=== PATIENT | male | born 1945 | race American Indian/Alaskan Native ===

== ENCOUNTER 2017-04-04 07:52 | Outpatient (CLI) | payer MEDICARE ==
--- NOTE | 2017-04-04 11:21 | Cat Scan Report ---
CT abdomen and pelvis without contrast: Prostate cancer. Transverse images are obtained from the low chest to the ischium with coronal and sagittal 2-D reformatted images. The visualized lung bases are clear with no nodule. The abdominal organs are unremarkable. There is a 1 cm hypodensity in the superior right kidney having attenuation consistent with fluid. The retroperitoneal structures were not otherwise remarkable. The partially opacified bowel and mesentery is unremarkable. No inflammatory changes. No obvious periaortic or mesentery adenopathy. Sections carried through the pelvis demonstrate an enlarged prostate gland indenting the bladder base. No adenopathy appreciated although this evaluation is somewhat limited in the absence of IV contrast. There no blastic or lytic bone lesions identified. Impression: Enlarged prostate gland. No metastases identified. Right renal hypodensity with limited evaluation consistent with cyst.
--- NOTE | 2017-04-05 08:18 | Nuclear Medicine Report ---
NUCLEAR MEDICINE WHOLE BODY BONE SCAN HISTORY: Prostate cancer. TECHNIQUE: Anterior and posterior whole body images and oblique images of the chest and abdomen were obtained following 25 mCi of technetium 99m MDP. FINDINGS: Correlation is made with the CT abdomen pelvis without contrast performed the same day. No previous bone scan at this facility. There is increased radiotracer uptake throughout large portions of the right iliac bone, right acetabulum and right ischium. There is cortical and trabecular thickening and sclerosis throughout the right hemipelvis on CT. Although this could be related to metastatic prostate cancer, Paget's disease should also be considered. There are 2 focal intense areas of uptake in left lateral ribs 6 and 7. Nondisplaced fractures are identified in these areas on the noncontrast CT performed same day. No additional areas of abnormal uptake is appreciated. IMPRESSION: Abnormal uptake is identified throughout most of the right hemipelvis. It is unclear if this is related to metastatic cancer or Paget's disease. I favor Paget's disease given the findings on CT. Please correlate with the patient's clinical history, laboratory values and clinical presentation. Left lateral sixth and seventh rib fractures, nondisplaced and healing.
== END 2017-04-04 07:53 | disposition home or self-care (01) ==
LOC: NM 07:52
PROVIDERS: ATTEND Urology
DX: C61 Malignant neoplasm of prostate (principal); S22.42XD Multiple fractures of ribs, left side, subsequent encounter for fracture with routine healing; X58.XXXD Exposure to other specified factors, subsequent encounter
CPT/HCPCS: 74176; 78306; A9503